=== PATIENT | female | born 1990 | race Caucasian/White ===

== ENCOUNTER 2021-06-04 13:13 | Emergency (ER) | payer OTHER ==
[2021-06-04 13:29] VITALS: O2SAT 98
[2021-06-04] MEDS ORDERED: TYLENOL 325 MG PO ONE (13:37)
[2021-06-04] MEDS ORDERED: TYLENOL 325 MG ONE (13:44)
--- NOTE | 2021-06-04 13:49 | XRAY ---
Indication: Pain. Comparison: None 3 nonweightbearing views right foot demonstrates tiny navicular accessory ossicle. No other bony, articular, or soft tissue abnormalities.
--- NOTE | 2021-06-04 14:06 | ERPHSYRPT ---
- History of Present Illness Time Seen by Provider: 06/04/21 13:30 Source: patient Patient Subjective Stated Complaint: Right foot pain Triage Nursing Assessment: Patient ambulated back to ED and transferred self to bed. Patient A+O x3. Patient's skin pink, warm and dry. Patient complains of right foot pain for 5 days. Patient denies injury. Patient states the pain is on the mid bottom of right foot that goes back to ankle. Patient states pain or worse when ambulating. No visible injuries or bruising noted. Physician History: Patient a 30-year-old female presents to our emergency department with complaints of pain to the plantar aspect of her right foot. Patient states pain started approximately 1 week ago. Pain worse with palpation and prolonged standing. Patient works as a gas welder. Patient requesting time off. No trauma. No fever. No numbness tingling or weakness of the extremity. Pain reproduced with palpation to the plantar aspect of her right foot. Of note patient's feet are somewhat flat. However soft tissue is intact. No open or draining lesions. Patient voices no other complaints or concerns at this time. Method of Injury: other (Repetitive motion standing.) Occurred: last week Quality: constant Severity of Pain-Max: moderate Severity of Pain-Current: mild (Patient declined pain medication.) Lower Extremities Pain: foot: right Modifying Factors: Improves With: movement, other (Palpation, prolonged standing) Associated Symptoms: none Allergies/Adverse Reactions: No Known Drug Allergies Allergy (Unverified 06/04/21 13:23) Hx Influenza Vaccination/Date Given: No Hx Pneumococcal Vaccination/Date Given: No Immunizations Up to Date: Yes Travel Risk - International Travel Have you traveled outside of the country in past 3 weeks: No - Coronavirus Screening Are you exhibiting any of the following symptoms?: No Close contact with a COVID-19 positive Pt in past 14-21 Days: No - Vaccine Status Have you recieved a Covid-19 vaccination: Yes Assistant [employer]: [employer] - Vaccination Dates Date of 2cond Vaccination (if applicable): December 22, 2020 - Review of Systems Constitutional: No Symptoms, No Fever, No Chills Eyes: No Symptoms Ears, Nose, & Throat: No Symptoms Respiratory: No Symptoms, No Cough, No Dyspnea Cardiac: No Symptoms, No Chest Pain, No Edema, No Syncope Abdominal/Gastrointestinal: No Symptoms, No Abdominal Pain, No Nausea, No Vomiting, No Diarrhea Genitourinary Symptoms: No Symptoms, No Dysuria Musculoskeletal: No Symptoms, No Back Pain, No Neck Pain Skin: No Symptoms, No Rash Neurological: No Symptoms, No Dizziness, No Focal Weakness, No Sensory Changes Psychological: No Symptoms Endocrine: No Symptoms Hematologic/Lymphatic: No Symptoms Immunological/Allergic: No Symptoms All Other Systems: Reviewed and Negative - Past Medical History Pertinent Past Medical History: No Neurological History: No Pertinent History ENT History: No Pertinent History Cardiac History: No Pertinent History Respiratory History: No Pertinent History Endocrine Medical History: No Pertinent History Musculoskeletal History: No Pertinent History GI Medical History: GERD History: No Pertinent History Psycho-Social History: No Pertinent History Female Reproductive Disorders: No Pertinent History - Past Surgical History Past Surgical History: No Neuro Surgical History: No Pertinent History Cardiac: No Pertinent History Respiratory: No Pertinent History Gastrointestinal: No Pertinent History Genitourinary: No Pertinent History Musculoskeletal: No Pertinent History Female Surgical History: No Pertinent History - Social History Smoking Status: Never smoker Exposure to second hand smoke: Yes Drug Use: none Patient Lives Alone: No - Female History Hx Last Menstrual Period: currently Hx Now: No - Nursing Vital Signs Nursing Vital Signs: Initial Vital Signs Temperature 97.5 F 06/04/21 13:24 Pulse Rate 76 06/04/21 13:24 Respiratory Rate 18 06/04/21 13:24 Blood Pressure 125/82 06/04/21 13:24 O2 Sat by Pulse Oximetry 98 06/04/21 13:24 Pain Scale Pain Intensity 5 - Physical Exam General Appearance: no apparent distress, alert Eyes, Ears, Nose, Throat Exam: moist mucous membranes Neck Exam: non-tender, supple Cardiovascular/Respiratory Exam: chest non-tender, normal breath sounds, regular rate/rhythm, no respiratory distress Gastrointestinal/Abdominal Exam: non-tender, guarding Back Exam: normal inspection, No vertebral tenderness Hips Exam: bilateral: non-tender, normal inspection, normal range of motion, no evidence of injury Legs Exam: bilateral leg: non-tender, normal inspection, normal range of motion, no evidence of injury Knees Exam: bilateral knee: non-tender, normal inspection, normal range of motion, no evidence of injury Ankle Exam: bilateral ankle: non-tender, normal inspection, normal range of motion, no evidence of injury Foot Exam: right foot: pain, soft tissue tenderness, other (Tenderness to palpation along the medial aspect of the plantar fascia. Patient's feet appear moderately pronated. Overlying soft tissue intact. Extremities neurovascular intact distally. Compartments are soft. Cap refill less than 2 seconds.), left foot: non-tender, normal inspection, normal range of motion, no evidence of i njury Neuro/Tendon Exam: normal sensation, normal motor functions Mental Status Exam: alert, oriented x 3, cooperative Skin Exam: normal color, warm, dry SpO2 Interpretation: normal SpO2: 98 O2 Delivery: Room Air - Course Nursing assessment & vital signs reviewed: Yes - Radiology Exams Foot X-ray Interpretation: Teleradiologist Report (Tiny navicular accessory ossicle. No bony articular or soft tissue abnormalities observed.) Ordered Tests: Active Orders 24 hr Category Date Time Status Splint STAT Care 06/04/21 14:08 Active FOOT (MINIMUM 3 VIEWS) Stat Exams 06/04/21 13:24 Completed Medication Summary Discontinued Medications Generic Name Dose Route Start Last Admin Trade Name Freq PRN Reason Stop Dose Admin Acetaminophen 975 mg 06/04/21 13:37 06/04/21 13:52 Acetaminophen 325 Mg Tablet PO 06/04/21 13:38 975 mg STAT ONE Administration Acetaminophen Confirm 06/04/21 13:44 Acetaminophen 325 Mg Tablet Administered 06/04/21 13:45 Dose 975 mg .ROUTE .STK-MED ONE - Progress Progress: improved Progress Note: Patient claimed pain medication. A postoperative shoe was provided. A work note was provided. A referral to podiatry was provided. X-rays negative for fracture dislocation. Evaluation significant for pes planus tenderness of the plantar fascia. Extremity otherwise neurovascular intact distally. Soft tissue intact. No indication for further work-up. Will discharge home. Patient agrees to follow-up with podiatry tomorrow as discussed. Patient voices no other complaints or concerns at this time. Patient states she is ready for discharge. \Portions of this note were created with voice recognition technology. There may be grammatical, spelling, punctuation or sound alike errors 06/04/21 14:11 Counseled pt/family regarding: diagnosis, need for follow-up, rad results - Departure Departure Disposition: Home Clinical Impression: Strain of plantaris tendon, Repetitive motion injury, Pes planus Condition: Stable Critical Care Time: No Additional Instructions: Discharge/Care Plan CORNELIUS OGDEN was seen on 06/04/21 in the Emergency Room. The patient was counseled regarding Diagnosis,Lab results, Imaging studies, need for follow up and when to return to the Emergency Room. Prescriptions given: Discharge Note I have spoken with the patient and/or caregivers. I have explained the patient's condition, diagnosis and treatment plan based on the information available to me at this time. I have answered the patient's and/or caregiver's questions and addressed any concerns. The patient and/or caregivers have as good understanding of the patient's diagnosis, condition and treatment plan as can be expected at this point. The vital signs have been stable. The patient's condition is stable and appropriate for discharge from the emergency department. The patient will pursue further outpatient evaluation with the primary care physician or other designated or consulting physician as outlined in the discharge instructions. The patient and/or caregivers are agreeable to this plan of care and follow-up instructions have been explained in detail. The patient and/or caregivers have received these instruction. The patient/and or caregivers are aware that any significant change in condition or worsening of symptoms should prompt an immediate return to this or the closest emergency department or call 911. Forms: Work/School Release Form Outpatient Orders: Podiatry Referral Time Frame: 1 Day, Facility: [facility]osp, Location: [facility]
[2021-06-04 14:29] VITALS: BP 118/72; PULSE 72
== END 2021-06-04 14:25 | disposition home or self-care (01) ==
LOC: ED 13:13
DX: S96.811A Strain of other specified muscles and tendons at ankle and foot level, right foot, initial encounter (principal); X50.3XXA Overexertion from repetitive movements, initial encounter; X50.1XXA Overexertion from prolonged static or awkward postures, initial encounter; Y99.0 Civilian activity done for income or pay; M21.42 Flat foot [pes planus] (acquired), left foot; M21.41 Flat foot [pes planus] (acquired), right foot
CPT/HCPCS: 73630; 99284; A9270-GY